=== PATIENT | male | born 1935 | race Caucasian/White ===

== ENCOUNTER → 2018-05-15 | Outpatient (CLI) | payer MEDICARE ==
[~2018-05-15] MED LIST: ACET-458 PO; CALC1CAP8 PO; CALC400T6 PO; CARB1CAP7 PO; ESOM40CA PO; FLUT9.9S NS; GABA300C10 PO; RASA1TAB2 PO
[2018-05-15 13:59] LABS: PROTHROMBIN TIME 10.4 Seconds (9.6-11.5)
[2018-05-15 14:00] LABS: ALANINE AMINOTRANSFERASE 15 U/L (12-78); ALBUMIN 3.6 g/dL (3.4-5.0); ANION GAP 5 mmol/L (5-15); CALCIUM 8.9 mg/dL (8.5-10.1); CHLORIDE 105 mmol/L (98-107)
[2018-05-15 14:02] LABS: ALKALINE PHOSPHATASE 76 U/L (45-117); BILIRUBIN,TOTAL 0.6 mg/dL (0.2-1.0); CREATININE 0.91 mg/dL (0.7-1.3)
[2018-05-15 14:04] LABS: BASOPHILS # (AUTO) 0.06 x10^3/uL (0-0.1); BASOPHILS % (AUTO) 1 % (0-1); EOSINOPHILS # (AUTO) 0.21 x10^3/uL (0-0.4); EOSINOPHILS % (AUTO) 3 % (1-7); LYMPHOCYTES # (AUTO) 1.21 x10^3/uL (1-3.4); LYMPHOCYTES % (AUTO) 18 % (22-44); MD NO; MEAN CORPUSCULAR HEMOGLOBIN 32.2 pg (27.5-34.5); MEAN CORPUSCULAR VOLUME 94.8 fL (81-97); MEAN PLATELET VOLUME 9.8 fL (7.4-10.4); MONOCYTES % (AUTO) 12 % (2-9); NEUTROPHILS # (AUTO) 4.41 x10^3/uL (1.8-6.8); NEUTROPHILS % (AUTO) 66 % (42-75); PLATELET COUNT 200 x10^3/uL (130-400); RED BLOOD COUNT 4.76 x10^6/uL (4.38-5.82); RED CELL DISTRIBUTION WIDTH 13.7 % (9.4-14.8)
[2018-05-15 14:07] LABS: MICROSCOPIC AUTO
== END | disposition home or self-care (01) ==
LOC: STAR 12:29
PROVIDERS: ATTEND Urology
DX: Z01.818 Encounter for other preprocedural examination (principal); N20.0 Calculus of kidney
CPT/HCPCS: 36415; 80053; 81001; 85025; 85610; 85730; 87086; 93005

== ENCOUNTER 2018-05-22 11:55 | Day surgery (SDC) | payer MEDICARE, SELFPAY ==
[~2018-05-22] VITALS: Ht 182.9 cm; Wt 80.1 kg
[2018-05-22] MEDS ORDERED: LACTATED RINGERS 1,000 ML IV SCH (12:22)
[2018-05-22] MEDS ORDERED: ONDANSETRON 2MG/ML, 2ML IVPush PRN (13:30)
[2018-05-22] MEDS ORDERED: HYDROmorphone 1 MG/ML, 1ML IV PRN (13:30)
[2018-05-22] MEDS ORDERED: LABETALOL 5MG/ML, 20ML IV PRN (13:30)
[2018-05-22] MEDS ORDERED: MEPERIDINE/PF 25MG/0.5ML IVPush PRN (13:30)
[2018-05-22] MEDS ORDERED: MIDAZOLAM 1 MG/ML, 2ML IV PRN (13:30)
[2018-05-22] MEDS ORDERED: FENTANYL PF 100 MCG/2ML IV PRN (13:30)
[2018-05-22] MEDS ORDERED: OXYcodone 5 MG/5 ML ORAL.SOL UDC PO PRN (13:30)
[2018-05-22] MEDS ORDERED: DEXAMETHASONE 4 MG/ML, 1ML ONE (14:09)
[2018-05-22] MEDS ORDERED: PROPOFOL 10 MG/ML, 20ML ONE (14:09)
[2018-05-22] MEDS ORDERED: ONDANSETRON 2MG/ML, 2ML ONE (14:09)
[2018-05-22] MEDS ORDERED: PHENYLEPHRINE 10 MG/ML ONE (14:09)
[2018-05-22] MEDS ORDERED: FENTANYL PF 100 MCG/2ML ONE (14:12)
== END 2018-05-22 17:25 | disposition home or self-care (01) ==
LOC: OUT 11:55
PROVIDERS: ATTEND Urology
DX: N20.0 Calculus of kidney (principal); M19.90 Unspecified osteoarthritis, unspecified site; J45.909 Unspecified asthma, uncomplicated; F15.90 Other stimulant use, unspecified, uncomplicated; Z98.890 Other specified postprocedural states; Z72.89 Other problems related to lifestyle; Z87.891 Personal history of nicotine dependence; Z79.899 Other long term (current) drug therapy; Z82.49 Family history of ischemic heart disease and other diseases of the circulatory system; Z80.42 Family history of malignant neoplasm of prostate; Z82.5 Family history of asthma and other chronic lower respiratory diseases
CPT/HCPCS: 50590; J1100; J2370; J2405; J2704; J3010; J7120

== ENCOUNTER 2018-08-07 06:59 | Day surgery (SDC) | payer MEDICARE ==
[2018-08-05 14:22] VITALS: BP 122/74
[2018-08-05 15:14] LABS: MICROSCOPIC AUTO
[~2018-08-07] VITALS: Ht 182.9 cm; Wt 82.7 kg
[~2018-08-07 06:59] MED LIST changes: +POLYETHYLENE GLYCOL PO
[2018-08-07] MEDS ORDERED: LACTATED RINGERS 1,000 ML IV SCH (07:46)
[2018-08-07 07:52] VITALS: BP 122/74
[2018-08-07] MEDS ORDERED: FENTANYL PF 100 MCG/2ML ONE (08:33)
[2018-08-07] MEDS ORDERED: ONDANSETRON 2MG/ML, 2ML ONE (09:06)
[2018-08-07] MEDS ORDERED: PROPOFOL 10 MG/ML, 20ML ONE (09:06)
[2018-08-07] MEDS ORDERED: SUCCINYLCHOLINE 20 MG/ML, 10ML ONE (09:06)
[2018-08-07] MEDS ORDERED: ROCURONIUM 10 MG/ML,10ML ONE (09:06)
[2018-08-07] MEDS ORDERED: CEFAZOLIN 1,000 MG ONE (09:06)
[2018-08-07] MEDS ORDERED: OXYcodone 5 MG/5 ML ORAL.SOL UDC ONE (11:46)
== END 2018-08-07 15:10 | disposition home or self-care (01) ==
LOC: OUT 06:59
PROVIDERS: ATTEND Urology
DX: N20.0 Calculus of kidney (principal); J45.909 Unspecified asthma, uncomplicated; I10 Essential (primary) hypertension; Z72.89 Other problems related to lifestyle; Z98.890 Other specified postprocedural states
CPT/HCPCS: 52356; 74018; 76000; 81001; 82360; 87086; 88300; C1758; C1769; C2617; J0330; J0690; J2405; J2704; J3010; J7120